=== PATIENT | male | born 1975 ===

== ENCOUNTER 2017-06-19 07:08 | Emergency (ER) | payer SELFPAY ==
--- NOTE | 2017-06-19 08:50 | Cat Scan Report ---
Cranial CT without contrast. History: Dizziness and syncope. Findings: The brain parenchyma is normal. There is no evidence of hemorrhage, infarct, or mass. No extra-axial collections are seen. The ventricles are normal in size and contour. The posterior fossa is normal. The calvarium is intact. There is extensive mucoperiosteal thickening in the right maxillary and right ethmoid sinuses with less severe involvement of the left maxillary and left ethmoid sinuses. The mastoid air cells are normal. Impression: 1. No intracranial abnormalities. 2. Chronic maxillary and ethmoid sinusitis.
--- NOTE | 2017-06-19 09:09 | XRay Report ---
ROUTINE CHEST, TWO VIEWS: HISTORY: Dizziness. The trachea, heart, mediastinal contour, lung young and bony thorax are unremarkable. IMPRESSION: Unremarkable chest x-ray.
[2017-06-19 09:33] LABS: Basophils # (Auto) 0.1 K/mm3 (0.0-0.1); Basophils % (Auto) 0.5 % (0.0-1.8); Eosinophils # (Auto) 0.1 K/mm3 (0.0-0.4); Eosinophils % (Auto) 0.9 % (0.0-4.3); Hematocrit 45.2 % (35.5-45.6); Hemoglobin 14.8 gm/dl (11.8-15.2); Lymphocytes # (Auto) 1.6 K/mm3 (1.2-5.4); Lymphocytes % (Auto) 13.8 % (13.4-35.0); Mean Corpuscular HGB Conc 33 % (32-34); Mean Corpuscular Hemoglobin 27 pg (28-32); Mean Corpuscular Volume 83 fl (84-94); Monocytes # (Auto) 0.6 K/mm3 (0.0-0.8); Monocytes % (Auto) 5.3 % (0.0-7.3); Platelet Count 256 K/mm3 (140-440); Red Blood Count 5.43 M/mm3 (3.65-5.03); Red Cell Distribution Width 13.5 % (13.2-15.2)
[2017-06-19 09:57] LABS: BUN/Creatinine Ratio 18; Blood Urea Nitrogen 18 mg/dL (9-20); Calcium 8.7 mg/dL (8.4-10.2); Hemolysis Index 11
--- NOTE | 2017-06-19 14:48 | Emergency Department Report ---
HPI - General Chief Complaint: Dizziness Time Seen by Provider: 06/19/17 14:16 - HPI HPI: Patient reports that dizziness and dehydration. Patient states that he has had flu symptoms since 2 weeks and he has been taking medication and he feels better but he started getting dizzy yesterday. He states that he was standing up and he felt like the room was spinning around. Reports productive cough with yellow phlegm with sometimes specks of blood. Patient's that I feel like the room is spinning. Doesn't complain of muscle cramping in his legs. He said he passed out this morning in front of his . Report nausea and vomiting. Positive fever preparation which has gone away now he is also complaining a headache since yesterday. Pain is located to the front of his head and his facial area and ate at a 10 achy.` Denies any back or abdominal pain. Denies any neck pain or stiffness. Denies any chest pain or shortness of breath. ED Past Medical Hx - Past Medical History Previous Medical History?: No - Surgical History Past Surgical History?: No - Family History Family history: no significant - Social History Smoking Status: Never Smoker Substance Use Type: None - Medications Home Medications: Home Medications Medication Instructions Recorded Confirmed Last Taken Type Amoxicillin/K Clav Tab [Augmentin 1 tab PO Q12HR 10 Days #20 tab 06/19/17 Unknown Rx 875 mg] Cetirizine HCl [ZyrTEC] 10 mg PO QAM 14 Days #14 tab.rapdis 06/19/17 Unknown Rx Fluticasone [Flonase] 1 spray NS QDAY 14 Days #1 bottle 06/19/17 Unknown Rx Meclizine [Antivert] 25 mg PO TID PRN 4 Days #12 tablet 06/19/17 Unknown Rx Promethazine HCl/Codeine 5 ml PO Q8H PRN #75 ml 06/19/17 Unknown Rx [Promethazine-Codeine Syrup] ED Review of Systems ROS: Stated complaint: FLU LIKE SYMPTOMS Other details as noted in HPI Comment: All other systems reviewed and negative Constitutional: fever Eyes: denies: vision change ENT: denies: ear pain, throat pain, congestion Respiratory: cough. denies: orthopnea, shortness of breath, SOB with exertion, SOB at rest, stridor, wheezing Cardiovascular: denies: chest pain, palpitations, dyspnea on exertion, orthopnea , edema, syncope, paroxysmal nocturnal dyspnea Gastrointestinal: nausea, vomiting. denies: abdominal pain, diarrhea, constipation, hematemesis, melena, hematochezia Genitourinary: denies: dysuria, frequency, hematuria, discharge Musculoskeletal: myalgia. denies: back pain, joint swelling, arthralgia Skin: denies: rash Neurological: headache, vertigo. denies: weakness, numbness, paresthesias, confusion, abnormal gait Physical Exam - Physical Exam Vital Signs: Vital Signs 06/19/17 08:11 Temperature 97.6 F Pulse Rate 52 L Respiratory 18 Rate Blood Pressure 115/78 O2 Sat by Pulse 98 Oximetry General: This is a 42-year-old male well-nourished well-developed in no acute distress and nontoxic in appearance Physical Exam: Head: Normocephalic, atraumatic, no abrasion, no bruising and no contusion. Eyes: Biateral pupils equal and reactive to light, bilateral EOM intact.. Bilateral conjunctival and sclera without injection, normal accommodation. No nystagmus Mouth: Moist, no pharyngeal exudate or erythema. No peritonsillar abscesses. Uvula is midline and oral airways patent. Ears: Miah TM congested without erythema. Bilateral EAC without any redness swelling or drainage. No mastoid bone tenderness Nose: Bilateral nasal turbinates congested with erythema and clear drainage. Maxillary and frontal sinuses non-tender to palpate. Neck: Supple, No Cervical adenopathy, full range of motion and no C-spine tenderness. No swelling or tracheal deviation normal reflexes Cardiovascular: S1, S2. Regular rate and rhythm. No murmur. Capillary refill is less then 3 seconds. Lungs: Clear to auscultate bilaterally. No rhonchi, wheezes or rales. No chest wall tenderness. No chest contusion. No bruising to chest. Abdomen: Non-tender to palpate in all quadrants, no guarding or rebound tenderness, positive bowel sounds in all quadrants. No CVA tenderness. No hernia, bruit or mass. No rigidity or distention. Extremities: No clubbing, cyanosis or edema. +2 pulses. No neurovascular compromise Skin: Clean, dry and intact. No rash or lesions. Neurological: GCS at 15, Pt is alert and oriented 3 speech is clear period. Bilateral hand cobbler upper strong and equal. Normal gait. Negative Romberg and no pronator drift. Normal Reflexes. No motor or sensory deficit Back: No vertebral tenderness, no paraspinal tenderness. normal inspection Psych: Normal mood and behavior ED Course Vital Signs 06/19/17 08:11 Temperature 97.6 F Pulse Rate 52 L Respiratory 18 Rate Blood Pressure 115/78 O2 Sat by Pulse 98 Oximetry Vital Signs 06/19/17 06/19/17 08:11 14:57 Temperature 97.6 F Pulse Rate 52 L 55 L Respiratory 18 16 Rate Blood Pressure 115/78 Blood Pressure 121/70 [Left] O2 Sat by Pulse 98 100 Oximetry - Reevaluation(s) Reevaluation #1: 06/19/17 15:43 Patient orally hydrated in emergency room. Feels better. VSS, afeb. ED Medical Decision Making - Lab Data Result diagrams: 06/19/17 09:23 06/19/17 09:23 Lab Results 06/19/17 06/19/17 06/19/17 Range/Units 09:23 09:23 11:10 WBC 11.5 H (4.5-11.0) K/mm3 RBC 5.43 H (3.65-5.03) M/mm3 Hgb 14.8 (11.8-15.2) gm/dl Hct 45.2 (35.5-45.6) % MCV 83 L (84-94) fl MCH 27 L (28-32) pg MCHC 33 (32-34) % RDW 13.5 (13.2-15.2) % Plt Count 256 (140-440) K/mm3 Lymph % (Auto) 13.8 (13.4-35.0) % Nolan % (Auto) 5.3 (0.0-7.3) % Eos % (Auto) 0.9 (0.0-4.3) % Baso % (Auto) 0.5 (0.0-1.8) % Lymph # 1.6 (1.2-5.4) K/mm3 Nolan # 0.6 (0.0-0.8) K/mm3 Eos # 0.1 (0.0-0.4) K/mm3 Baso # 0.1 (0.0-0.1) K/mm3 Seg Neutrophils % 79.5 H (40.0-70.0) % Seg Neutrophils # 9.1 H (1.8-7.7) K/mm3 Sodium 137 (137-145) mmol/L Potassium 4.3 (3.6-5.0) mmol/L Chloride 99.6 (98-107) mmol/L Carbon Dioxide 27 (22-30) mmol/L Anion Gap 15 mmol/L BUN 18 (9-20) mg/dL Creatinine 1.0 (0.8-1.5) mg/dL Estimated GFR > 60 ml/min BUN/Creatinine Ratio 18 % Glucose 151 H (75-100) mg/dL Calcium 8.7 (8.4-10.2) mg/dL Troponin T < 0.010 < 0.010 (0.00-0.029) ng/mL 06/19/17 Range/Units 14:43 WBC (4.5-11.0) K/mm3 RBC (3.65-5.03) M/mm3 Hgb (11.8-15.2) gm/dl Hct (35.5-45.6) % MCV (84-94) fl MCH (28-32) pg MCHC (32-34) % RDW (13.2-15.2) % Plt Count (140-440) K/mm3 Lymph % (Auto) (13.4-35.0) % Nolan % (Auto) (0.0-7.3) % Eos % (Auto) (0.0-4.3) % Baso % (Auto) (0.0-1.8) % Lymph # (1.2-5.4) K/mm3 Nolan # (0.0-0.8) K/mm3 Eos # (0.0-0.4) K/mm3 Baso # (0.0-0.1) K/mm3 Seg Neutrophils % (40.0-70.0) % Seg Neutrophils # (1.8-7.7) K/mm3 Sodium (137-145) mmol/L Potassium (3.6-5.0) mmol/L Chloride (98-107) mmol/L Carbon Dioxide (22-30) mmol/L Anion Gap mmol/L BUN (9-20) mg/dL Creatinine (0.8-1.5) mg/dL Estimated GFR ml/min BUN/Creatinine Ratio % Glucose (75-100) mg/dL Calcium (8.4-10.2) mg/dL Troponin T < 0.010 (0.00-0.029) ng/mL - EKG Data -: EKG Interpreted by Me (Attending physician) Rate: bradycardia (42 BPM) - EKG Data Interpretation: no acute changes - Radiology Data Radiology results: report reviewed CXR no acute findings Critical care attestation.: If time is entered above; I have spent that time in minutes in the direct care of this critically ill patient, excluding procedure time. ED Disposition Clinical Impression: Vertigo, Cough in adult, Syncope and collapse Sinusitis, acute Qualifiers: Sinusitis location: unspecified location Recurrence: not specified as recurrent Qualified Code(s): J01.90 - Acute sinusitis, unspecified Disposition: TO HOME OR SELFCARE Is pt being admited?: No Does the pt Need Aspirin: No Condition: Stable Instructions: Sinusitis (ED), Syncope (ED), Musculoskeletal Pain (ED), Acute Cough (ED) Additional Instructions: Increase your fluid intake 2 to 3 liters daily to include water, Gatorade Take medication as prescribed You have vertigo which is more likely from your chronic sinus infection. Take for Zyrtec and Flonase as prescribed Follow up with PCP in 24 hours and if he do not have a primary care as she can follow up with outside Medical Center Prescriptions: Amoxicillin/K Clav Tab [Augmentin 875 mg] 1 tab PO Q12HR 10 Days #20 tab Cetirizine HCl [ZyrTEC] 10 mg PO QAM 14 Days #14 tab.rapdis Fluticasone [Flonase] 1 spray NS QDAY 14 Days #1 bottle Meclizine [Antivert] 25 mg PO TID PRN 4 Days #12 tablet PRN Reason: Vertigo Promethazine HCl/Codeine [Promethazine-Codeine Syrup] 5 ml PO Q8H PRN #75 ml PRN Reason: Cough Referrals: PRIMARY CARE,MD [Primary Care Provider] - 24 Hours [facility] [Outside] - 06/20/17 Forms: Work/School Release Form(ED)
[2017-06-19 14:59] VITALS: BP 121/70
== END 2017-06-19 16:01 | disposition home or self-care (01) ==
LOC: ED 07:08
DX: R55 Syncope and collapse (principal); J01.10 Acute frontal sinusitis, unspecified; J01.00 Acute maxillary sinusitis, unspecified
CPT/HCPCS: 36415; 70450; 71046; 80048; 84484; 85025; 93005; 93010; 99285